=== PATIENT | male | born 2000 | race Caucasian/White ===

== ENCOUNTER 2019-07-31 18:25 | Emergency (ER) | payer MEDICAID ==
[~2019-07-31] VITALS: Ht 170.2 cm; Wt 101.4 kg
[2019-07-31 19:09] VITALS: Ht 170.2 cm; Wt 101.4 kg
[2019-07-31 21:02] VITALS: BP 143/74
== END 2019-07-31 21:02 | disposition home or self-care (01) ==
LOC: ED 18:25
DX: J11.1 Influenza due to unidentified influenza virus with other respiratory manifestations (principal); R06.02 Shortness of breath; R07.89 Other chest pain
CPT/HCPCS: 87804